=== PATIENT | female | born 1945 | race Caucasian/White ===

== ENCOUNTER 2018-03-15 14:46 | Inpatient (IN) | payer MEDICARE, MEDICAID ==
[2018-03-15] MEDS ORDERED: Morphine VIAL* 10 MG/ML 1 ML VIAL IV ONE (15:22)
[2018-03-15] MEDS ORDERED: Ondansetron INJ* 2 MG/ML VIAL IV ONE (15:22)
[2018-03-15] MEDS ORDERED: cefTRIAXone(*) 1 GM in NS 0.9% 50 ML* 50 ML IVPB ONE (15:24)
--- NOTE | 2018-03-15 15:28 | ED ---
HPI Chest Pain - HPI Summary HPI Summary: This pt is a 73 y/o female [facility] c/o right sided chest pain and RUQ abd pain since 3 days ago. Additionally she notes some SOB. Pt reports her pain is aggravated with deep breaths. Denies fever, chills, nausea, vomiting. She states her whole abdomen is always tender. PMHx includes cholecystectomy. She reports she was told she had COPD but her current PCP told her she didn't have it. Pt does not use oxygen at home. - History of Current Complaint Chief Complaint: EDChestWallPain Time Seen by Provider: 03/15/18 14:59 Hx Obtained From: Patient Onset/Duration: Started Days Ago, Still Present Timing: Lasting Days Current Severity: Severe Pain Intensity: 10 Pain Scale Used: 0-10 Numeric Chest Pain Location: Right Lateral Chest Pain Radiates: No Aggravating Factor(s): Deep Breaths Alleviating Factor(s): Nothing Associated Signs and Symptoms: Positive: Chest Pain, Shortness of Breath, Abdominal Pain - RUQ. Negative: Fever, Chills, Nausea, Vomiting - Allergy/Home Medications Allergies/Adverse Reactions: Allergies Allergy/AdvReac Type Severity Reaction Status Date / Time codeine AdvReac Abdominal Verified 03/16/18 21:38 Pain Home Medications: Home Medications Albuterol HFA INHALER* [Ventolin HFA Inhaler*] 1 puff INH Q6H PRN 03/15/18 [ History Confirmed 03/15/18] Fluticasone NASAL SPRAY 50MCG* [Flonase NASAL SPRAY 50MCG*] 2 spray BOTH NARES DAILY 03/15/18 [History Confirmed 03/15/18] Montelukast Sodium TAB* [Singulair TAB*] 10 mg PO QPM 03/15/18 [History Confirmed 03/15/18] PMH/Surg Hx/FS Hx/Imm Hx Endocrine/Hematology History: Denies: Hx Diabetes Cardiovascular History: Denies: Hx Hypertension GI History: Reports: Hx Gastroesophageal Reflux Disease, Hx Irritable Bowel Musculoskeletal History: Reports: Hx Arthritis - osteoarthritis, Hx Osteoporosis EENT History: Reports: Other - sinusitis Psychiatric History: Reports: Hx Depression - Surgical History Surgery Procedure, Year, and Place: hysterectomy. cholecystectomy Infectious Disease History: No Infectious Disease History: Denies: Traveled Outside the [place] in Last 30 Days - Family History Known Family History: Positive: Cardiac Disease - Mother Family History: Leukemia. Ovarian CA - Social History Alcohol Use: None Substance Use Type: Reports: None Smoking Status (MU): Never Smoked Tobacco Review of Systems Negative: Fever, Chills Positive: Chest Pain Positive: Shortness Of Breath Positive: Abdominal Pain. Negative: Vomiting, Nausea All Other Systems Reviewed And Are Negative: Yes Physical Exam - Summary Physical Exam Summary: VITAL SIGNS: Reviewed. GENERAL: Patient is a well-developed and nourished female who is lying comfortable in the stretcher. Patient with some shortness of breath. HEAD AND FACE: No signs of trauma. No ecchymosis, hematomas or skull depressions. No sinus tenderness. EYES: PERRLA, EOMI x 2, No injected conjunctiva, no nystagmus. EARS: Hearing grossly intact. Ear canals and tympanic membranes are within normal limits. MOUTH: Oropharynx within normal limits. NECK: Supple, trachea is midline, no adenopathy, no JVD, no carotid bruit, no c- spine tenderness, neck with full ROM. CHEST: Symmetric, right sided chest tenderness especially on palpation LUNGS: Clear to auscultation bilaterally. No wheezing or crackles. CVS: Regular rate and rhythm, S1 and S2 present, no murmurs or gallops appreciated. ABDOMEN: Soft, right upper quadrant abd tenderness on palpation. No signs of distention. No rebound, no guarding, and no masses palpated. Bowel sounds are normal. EXTREMITIES: FROM in all major joints, no edema, no cyanosis or clubbing. NEURO: Alert and oriented x 3. No acute neurological deficits. Speech is normal and follows commands. SKIN: Dry and warm Triage Information Reviewed: Yes Vital Signs On Initial Exam: Initial Vitals Temp Pulse Resp BP Pulse Ox 99 F 85 20 129/73 94 03/15/18 14:53 03/15/18 14:53 03/15/18 14:53 03/15/18 14:53 03/15/18 14:53 Vital Signs Reviewed: Yes Diagnostics - Vital Signs Vital Signs Temp Pulse Resp BP Pulse Ox 03/15/18 15:00 86 17 95 03/15/18 14:55 84 19 129/73 93 03/15/18 14:54 87 94 03/15/18 14:53 99 F 85 20 129/73 94 - Laboratory Result Diagrams: 03/15/18 15:39 03/16/18 05:30 Lab Statement: Any lab studies that have been ordered have been reviewed, and results considered in the medical decision making process. - Radiology Chest XR Xray Interpretation: Positive (See Comments) - IMPRESSION: The constellation of findings is most consistent with pulmonary vascular congestion and interstitial edema with associated RIGHT larger than LEFT small dependent pleural effusions and basilar atelectasis. Dr. Garza has reviewed this report. Radiology Interpretation Completed By: Radiologist - CT CTA Chest CT Interpretation: Positive (See Comments) - IMPRESSION: 1. Bilateral pulmonary emboli without right heart strain. 2. Bilateral lower lobe pneumonia/ atelectasis. Dr. Garza has reviewed this report. CT Interpretation Completed By: Radiologist - EKG 15:05 Cardiac Rate: NL - 86 bpm EKG Rhythm: Sinus Rhythm EKG Interpretation: No ST elevations. Chest Pain Course/Dx - Course Assessment/Plan: This pt is a 73 y/o female presenting to [facility] c/o right sided chest pain and RUQ abd pain since 3 days ago. Additionally she notes some SOB. Pt reports her pain is aggravated with deep breaths. Denies fever, chills, nausea, vomiting. She states her whole abdomen is always tender. PMHx includes cholecystectomy. She reports she was told she had COPD but her current PCP told her she didn't have it. Blood work without any significant abnormality except for WBCs 11.1, INR is 1.07, potassium 3.4, carbon dioxide is 20, glucose 111, total bili is 1.8, AST 48, alkaline phosphatase is 122, D-dimer of 1050, C- reactive protein is 82.6. Two troponins 4 hours apart are 0.01. Chest x-ray impression: Constellation findings is most consistent with pulmonary vascular congestion and interstitial edema with associated right larger than left a small dependent pleural effusion and bibasilar atelectasis. Chest CT impression : Bilateral pulmonary emboli without right heart strain. Bilateral lower lobe pneumonia. In the ED course the patient was given Rocephin for the pneumonia, IV fluids, and Eliquis for the pulmonary embolus. At this point I discussed my physical exam, findings and test results with Dr. Gentile from the hospitalist services who accepted the patient for admission. Patient is hemodynamically stable alert and oriented 3. - Chest Pain Differential Diagnosis/HQI/PQRI: Acute MN, CHF, Pulmonary Edema, Pulmonary Embolism, Other: - Pneumonia - Diagnoses Provider Diagnoses: Pulmonary embolism, bilateral - Provider Notifications Discussed Care Of Patient With: Bo Gentile - Hospitalist Time Discussed With Above Provider: 19:10 Instructed by Provider To: Admit As Inpatient - Critical Care Time Critical Care Time: 75-104 min Discharge - Sign-Out/Discharge Documenting (check all that apply): Patient Departure - Admit to [facility] - Discharge Plan Condition: Stable Disposition: ADMITTED TO [facility] - Billing Disposition and Condition Condition: STABLE Disposition: Admitted to [facility] - Attestation Statements Document Initiated by Scribe: Yes Documenting Scribe: Linda Sunshine Provider For Whom Rea is Documenting (Include Credential): Sukumar Garza MD Scribe Attestation: Linda Cavanaugh, scribed for Sukumar Garza MD on 03/17/18 at 0751. Scribe Documentation Reviewed: Yes Provider Attestation: The documentation as recorded by the Linda dunne accurately reflects the service I personally performed and the decisions made by , Sukumar Garza MD
[2018-03-15] MEDS ORDERED: Morphine INJ* 4 MG/ML 1 ML SYRINGE (NEW SYRINGE VERSION) ONE (15:32)
--- NOTE | 2018-03-15 15:39 | RAD ---
Indication: Chest pain, shortness of breath, RIGHT rib pain. Comparison: April 18, [address] Technique: Upright AP 1515 hours Report: Prominent ill-defined central pulmonary vasculature. RIGHT larger than LEFT small dependent pleural effusions with proportional basilar atelectasis. Negative for pneumothorax. Mild prominence of the interstitial markings. Cardiomegaly. IMPRESSION: #. The constellation of findings is most consistent with pulmonary vascular congestion and interstitial edema with associated RIGHT larger than LEFT small dependent pleural effusions and basilar atelectasis.
[2018-03-15 15:55] LABS: ABS Basophils 0.1 10^3/ul (0-0.2); ABS Eosinophils 0.1 10^3/ul (0-0.6); ABS Lymphocytes 1.5 10^3/ul (1.0-4.8); ABS Monocytes 0.9 10^3/ul (0-0.8); ABS Neutrophils 8.6 10^3/ul (1.5-7.7); ABS Nucleated RBC 0 10^3/ul; Eosinophil % 0.5 % (0-6); Hematocrit 42 % (35-47); Hemoglobin 14.2 g/dl (12.0-16.0); Lymphocyte % 13.8 % (25-47); Mean Corpuscular HGB Conc 34 g/dl (31-36); Mean Corpuscular Hemoglobin 29 pg (27-31); Mean Corpuscular Volume 85 fL (80-97); Mean Platelet Volume 8.7 um3 (7.4-10.4); Nucleated Red Blood Cells % 0.1; Platelet Count 184 10^3/ul (150-450); Red Blood Count 4.96 10^6/ul (4.00-5.40); Red Cell Distribution Width 14 % (10.5-15); White Blood Count 11.1 10^3/ul (3.5-10.8)
[2018-03-15 16:03] LABS: INR 1.07 (0.77-1.02)
[2018-03-15 16:21] LABS: EGFR Non-African American 90.7 (>60)
[2018-03-15] MEDS ORDERED: Ketorolac INJ* 30 MG/ML 1 ML VIAL IV PUSH ONE (16:53)
[2018-03-15] MEDS ORDERED: Potassium Chlor TAB* 20 MEQ TAB.ER PO ONE ×2 (17:22→19:21)
[2018-03-15] MEDS ORDERED: Iohexol 350* (CONTRAST) 500 ML MDV IV ONE (17:58)
--- NOTE | 2018-03-15 19:01 | RAD ---
EXAM: CT Angiography Chest With Intravenous Contrast CLINICAL HISTORY: 73 years old, female; Signs and symptoms; Shortness of breath; Additional info: Hypoxia TECHNIQUE: Axial computed tomographic angiography images of the chest with intravenous contrast using pulmonary embolism protocol. All CT scans at this facility use at least one of these dose optimization techniques: automated exposure control; mA and/or kV adjustment per patient size (includes targeted exams where dose is matched to clinical indication); or iterative reconstruction. MIP reconstructed images were created and reviewed. Coronal and sagittal reformatted images were created and reviewed. CONTRAST: 72 mL of OMNIPAQUE 350 administered intravenously. COMPARISON: No relevant prior studies available. FINDINGS: Pulmonary arteries: Acute pulmonary emboli are present in the segmental arteries diffusely and bilaterally. Aorta: Atherosclerotic calcification. Lungs: Bilateral lower lobe pneumonia/atelectasis. No mass. Pleural space: Right pleural effusion. No pneumothorax. Heart: No CT evidence of right heart strain. No significant pericardial effusion. Bones/joints: No acute fracture. No dislocation. Soft tissues: Unremarkable. Lymph nodes: Unremarkable. No enlarged lymph nodes. Kidneys and ureters: Probable left upper pole renal cyst measuring approximately 15 mm. Incompletely evaluated on this examination. Consider evaluation with ultrasound or dedicated renal MR if not already done so. IMPRESSION: 1. Bilateral pulmonary emboli without right heart strain. 2. Bilateral lower lobe pneumonia/atelectasis.
[2018-03-15] MEDS ORDERED: Apixaban* 5 MG TAB PO ONE (19:07)
[2018-03-15] MEDS ORDERED: traMADol TAB* 50 MG PO PRN (19:20)
[2018-03-15] MEDS ORDERED: Ondansetron ODT TAB* 4 MG PO PRN (19:20)
[2018-03-15] MEDS ORDERED: Melatonin 3 MG TAB PO PRN (19:20)
[2018-03-15] MEDS ORDERED: oxyCODONE TAB* 5 MG TAB PO PRN (19:20)
[2018-03-15] MEDS ORDERED: Albuterol HFA INHALER* 8 gm MDI INH PRN (19:22)
[2018-03-15] MEDS ORDERED: NS 0.9% 1000 ML* 1,000 ML IV SCH (19:30)
--- NOTE | 2018-03-15 20:35 | HP ---
H&P (Free Text) History and Physical: PCP: Dr George at [facility] Date/Time: 03/15/2018 191 CC: R chest pain HPI: Mrs Moore is a 73YO female HX asthma who presents reporting onset last Thursday of sharp R chest pain that resolved on its own, but returned today around 0400 associated with SOB and nausea, but no palpitations or light- headedness. She denies F/C, sweats, LE edema or pain, and specific alleviating factors. Pain is increased with laugh, cough, movement, and deep inspiration. It does radiate to the R shoulder area, but not the neck. She denies HX of similar PMedHx asthma Ambulatory Orders Albuterol HFA INHALER* [Ventolin HFA Inhaler*] 1 puff INH Q6H PRN 03/15/18 Fluticasone NASAL SPRAY 50MCG* [Flonase NASAL SPRAY 50MCG*] 2 spray BOTH NARES DAILY 03/15/18 Montelukast Sodium TAB* [Singulair TAB*] 10 mg PO QPM 03/15/18 Allergies No Known Allergies Allergy (Verified 08/23/14 17:38) PSurgHx B carpal tunnel release hysterectomy cholecystectomy [facility] cataract extractions SocHx: no tobacco, alcohol, or recreational drugs; , lives alone with her cats; HX several miscellaneous jobs; full code status, son Narayan Hidalgo is her HCP FamHx: Mother passed at 89 2nd CVA w/ HX CAD/CABG, & CHF. Father was estranged. ROS: as above, otherwise reviewed and all were negative vitals: Vital Signs Temp 37.2 C 03/15/18 14:53 Pulse 90 03/15/18 19:26 Resp 16 03/15/18 19:26 BP 118/78 03/15/18 19:26 Pulse Ox 94 03/15/18 19:26 Intake & Output 03/14/18 03/15/18 03/15/18 23:59 11:59 23:59 Weight 81.647 kg Constitutional: NAD, normally developed, obese elderly white female HEENM: atraumatic; sclera/conjunctiva: anicteric/clear; hearing: clinically intact; oropharynx: clear, mucosa moist Neck: soft tissue: non-tender; thyroid: normal Pulmonary: coarse crackles and mildly diminished bilaterally, fair to good aeration, no accessory muscle use CV: RR/RR, normal S1S2, no carotid bruit, no jugular venous distention, 2+ B DP/ PT, no edema Abdominal: soft, non-distended, non-tender, no rebound/guarding/rigidity, normoactive bowel sounds, no hepatosplenomegaly or masses, no costovertebral angle tenderness Musculoskeletal: general: grossly intact, positive Yaya's LLE Integumental: normal appearance and texture of exposed skin Psychiatric orientation: AA&O to PPS affect: calm mood: cooperative/pleasant eye contact: good content: reliable responses: minimalized insight: fair Testing: Lab Results 03/15/18 03/15/18 03/15/18 Range/Units 15:39 15:39 15:39 WBC 11.1 H (3.5-10.8) 10^3/ul RBC 4.96 (4.00-5.40) 10^6/ul Hgb 14.2 (12.0-16.0) g/dl Hct 42 (35-47) % MCV 85 (80-97) fL MCH 29 (27-31) pg MCHC 34 (31-36) g/dl RDW 14 (10.5-15) % Plt Count 184 (150-450) 10^3/ul MPV 8.7 (7.4-10.4) um3 Neut % (Auto) 77.2 (38-83) % Lymph % (Auto) 13.8 L (25-47) % [place] % (Auto) 8.0 H (0-7) % Eos % (Auto) 0.5 (0-6) % Baso % (Auto) 0.5 (0-2) % Absolute Neuts (auto) 8.6 H (1.5-7.7) 10^3/ul Absolute Lymphs (auto) 1.5 (1.0-4.8) 10^3/ul Absolute Monos (auto) 0.9 H (0-0.8) 10^3/ul Absolute Eos (auto) 0.1 (0-0.6) 10^3/ul Absolute Basos (auto) 0.1 (0-0.2) 10^3/ul Absolute Nucleated RBC 0 10^3/ul Nucleated RBC % 0.1 INR (Anticoag Therapy) 1.07 H (0.77-1.02) APTT 28.3 (26.0-36.3) seconds D-Dimer, Quantitative > 1050 H (Less Than 230) ng/mL Sodium 137 (135-145) mmol/L Potassium 3.4 L (3.5-5.0) mmol/L Chloride 106 (101-111) mmol/L Carbon Dioxide 20 L (22-32) mmol/L Anion Gap 11 (2-11) mmol/L BUN 8 (6-24) mg/dL Creatinine 0.64 (0.51-0.95) mg/dL Est GFR ( Amer) 109.8 (>60) Est GFR (Non-Af Amer) 90.7 (>60) BUN/Creatinine Ratio 12.5 (8-20) Glucose 111 H (70-100) mg/dL Lactic Acid (0.5-2.0) mmol/L Calcium 9.0 (8.6-10.3) mg/dL Magnesium 2.2 (1.9-2.7) mg/dL Total Bilirubin 1.80 H (0.2-1.0) mg/dL AST 48 H (13-39) U/L ALT 47 (7-52) U/L Alkaline Phosphatase 122 H (34-104) U/L Total Creatine Kinase 58 (10-223) U/L CK-MB (CK-2) 1.8 (0.6-6.3) ng/mL Troponin I 0.01 (<0.04) ng/mL C-Reactive Protein 82.67 H (<8.01) mg/L B-Natriuretic Peptide ( - 100) pg/mL Total Protein 7.2 (6.4-8.9) g/dL Albumin 4.1 (3.2-5.2) g/dL Globulin 3.1 (2-4) g/dL Albumin/Globulin Ratio 1.3 (1-3) TSH 1.50 (0.34-5.60) mcIU/mL 03/15/18 03/15/18 03/15/18 Range/Units 15:39 15:39 17:56 WBC (3.5-10.8) 10^3/ul RBC (4.00-5.40) 10^6/ul Hgb (12.0-16.0) g/dl Hct (35-47) % MCV (80-97) fL MCH (27-31) pg MCHC (31-36) g/dl RDW (10.5-15) % Plt Count (150-450) 10^3/ul MPV (7.4-10.4) um3 Neut % (Auto) (38-83) % Lymph % (Auto) (25-47) % [place] % (Auto) (0-7) % Eos % (Auto) (0-6) % Baso % (Auto) (0-2) % Absolute Neuts (auto) (1.5-7.7) 10^3/ul Absolute Lymphs (auto) (1.0-4.8) 10^3/ul Absolute Monos (auto) (0-0.8) 10^3/ul Absolute Eos (auto) (0-0.6) 10^3/ul Absolute Basos (auto) (0-0.2) 10^3/ul Absolute Nucleated RBC 10^3/ul Nucleated RBC % INR (Anticoag Therapy) (0.77-1.02) APTT (26.0-36.3) seconds D-Dimer, Quantitative (Less Than 230) ng/mL Sodium (135-145) mmol/L Potassium (3.5-5.0) mmol/L Chloride (101-111) mmol/L Carbon Dioxide (22-32) mmol/L Anion Gap (2-11) mmol/L BUN (6-24) mg/dL Creatinine (0.51-0.95) mg/dL Est GFR ( Amer) (>60) Est GFR (Non-Af Amer) (>60) BUN/Creatinine Ratio (8-20) Glucose (70-100) mg/dL Lactic Acid 1.6 (0.5-2.0) mmol/L Calcium (8.6-10.3) mg/dL Magnesium (1.9-2.7) mg/dL Total Bilirubin (0.2-1.0) mg/dL AST (13-39) U/L ALT (7-52) U/L Alkaline Phosphatase (34-104) U/L Total Creatine Kinase (10-223) U/L CK-MB (CK-2) (0.6-6.3) ng/mL Troponin I 0.01 (<0.04) ng/mL C-Reactive Protein (<8.01) mg/L B-Natriuretic Peptide 29 ( - 100) pg/mL Total Protein (6.4-8.9) g/dL Albumin (3.2-5.2) g/dL Globulin (2-4) g/dL Albumin/Globulin Ratio (1-3) TSH (0.34-5.60) mcIU/mL ECG, personally reviewed: NSR rate 86, Q-waves III/AVF, no ischemia CXR, personally reviewed: IMPRESSION: The constellation of findings is most consistent with pulmonary vascular congestion and interstitial edema with associated RIGHT larger than LEFT small dependent pleural effusions and basilar atelectasis. CTA chest, personally reviewed: IMPRESSION: 1. Bilateral pulmonary emboli without right heart strain. 2. Bilateral lower lobe pneumonia/atelectasis. Impression: 73F HX asthma presents with B pulmonary emboli DIAGNOSIS & PLAN Primary B pulmonary emboli : apixaban 10mg PO BID x7 days followed by 5mg BID : US BLE to evaluate for residual clot burden/risk : telemetry : supplemental oxygen : pain control : PT evaluation in AM : supportive care B lower lobe atelectasis favored over pneumonia given no infectious symptoms : incentive spirometry Secondary asthma : continue albuterol & montelukast Admission Rational: Inpatient as without the above interventions the risk of impending adverse outcome is unacceptably high; inappropriate for the outpatient setting DVTp: apixaban Code Status: full HCP: Narayan banuelos Critical Care time: 45minutes with >50% spent at the bedside obtaining a history , performing the examination, advising of diagnosis & treatment options along with risks/benefits/reasoning; remainder spent discussing with ER MD, reviewing labs and radiology exams, performing documentation
[2018-03-15] MEDS: Docusate CAP* 100 MG PO SCH (21:43)
--- NOTE | 2018-03-16 00:04 | RAD ---
EXAM: US Duplex Bilateral Lower Extremity Veins CLINICAL HISTORY: 73 years old, female; Condition or disease; Other: Pulmonary embolism; Additional info: B pe, assess for residual clot burden TECHNIQUE: Real-time duplex ultrasound scan of the bilateral lower extremity veins integrating B-mode two-dimensional vascular structure, Doppler spectral analysis, color flow Doppler imaging and compression. COMPARISON: No relevant prior studies available. FINDINGS: Right deep veins: Unremarkable. No DVT in the right common femoral, femoral, proximal deep femoral or popliteal veins. The veins demonstrate normal color flow, are normally compressible, with normal phasic flow and/or augmentation response. Right superficial veins: Unremarkable. No thrombus in the visualized right great saphenous vein. Left deep veins: No DVT in the left common femoral, femoral, proximal deep femoral or popliteal veins. These veins demonstrate normal color flow, are normally compressible, with normal phasic flow and/or augmentation response. Nonocclusive thrombus is present in the left posterior tibial vein. Left superficial veins: Unremarkable. No thrombus in the visualized left great saphenous vein. Soft tissues: No acute findings. No popliteal cyst. IMPRESSION: 1. The study is positive for nonocclusive thrombus in LEFT posterior tibial vein. No thrombus identified above the left knee. 2. No DVT in RIGHT lower extremity.
[2018-03-16] MEDS: Omeprazole CAP* 20 MG PO SCH (05:41)
[2018-03-16] MEDS: Apixaban* 5 MG TAB PO SCH ×2 (09:20→21:49)
[2018-03-16] MEDS: Docusate CAP* 100 MG PO SCH ×2 (09:20→21:53)
[2018-03-16] MEDS: Fluticasone NASAL SPRAY 50MCG* 16 gm SPRAY BTL BOTH NARES SCH (09:22)
--- NOTE | 2018-03-16 11:46 | ECHO ---
Patient: CASSIDY BUTT [facility] Rec#: [id number] : 1945 Date: 03/16/2018 Age: 73y Height: 157 cm / 61.8 in Weight: 81.6 kg / 179.8 lbs Sex: F BSA: 1.8 Room#: 438 Admit Date#: 03/15/2018 Type: Inpatient Referring: Bo Gentile MD Reading: Rudy Dela Cruz MD Rn Oncology: Kaylin Garcia RN RDCS Transthoracic Echocardiogram Indication: Pulmonary Embolism BP: 101/57 HR: 80 Rhythm: NSR Findings History: Asthma Technical Comments: The study quality is fair. The study is technically limited due to patient body habitus. Left Ventricle: The left ventricular chamber size is normal. Mild concentric left ventricular hypertrophy is observed. Global left ventricular wall motion and contractility are within normal limits. There is normal left ventricular systolic function. The estimated ejection fraction is 60-65%. There is no consistent Doppler evidence of clinically significant diastolic dysfunction. Left Atrium: The left atrial chamber size is normal. Right Ventricle: Moderator Band present. The right ventricle is mildly dilated. The right ventricle wall thickness is mildly increased. The right ventricular global systolic function is mildly reduced. Right Atrium: The right atrial cavity size is normal. Aortic Valve: The aortic valve is trileaflet. The aortic valve leaflets are mildly thickened. There is no evidence of aortic regurgitation. There is no evidence of aortic stenosis. Mitral Valve: The mitral valve leaflets are mildly thickened. There is a trace of mitral regurgitation. There is no evidence of mitral stenosis. Tricuspid Valve: The tricuspid valve leaflets are normal. There is mild to moderate tricuspid regurgitation. There is evidence of moderate pulmonary hypertension. There is no tricuspid stenosis. Pulmonic Valve: The pulmonic valve appears normal. There is a trace pulmonic regurgitation. There is no pulmonic stenosis. Pericardium: There is no significant pericardial effusion. A pericardial fat pad is visualized. Aorta: There is no dilatation of the ascending aorta. There is no dilatation of the aortic arch. There is mild dilatation of the aortic root. Pulmonary Artery: The main pulmonary artery is not well visualized. Venous: The inferior vena cava appears normal in size. There is a greater than 50% respiratory change in the inferior vena cava dimension. Summary: There was not any prior study for comparison. Conclusions Global left ventricular wall motion and contractility are within normal limits. There is normal left ventricular systolic function. The estimated ejection fraction is 60-65%. The right ventricular global systolic function is mildly reduced. There is no evidence of aortic stenosis. There is a trace of mitral regurgitation. There is mild to moderate tricuspid regurgitation. There is evidence of moderate pulmonary hypertension. There is no significant pericardial effusion. Measurements Name Value Normal Range RVIDd (AP) 2D 3.4 cm (0.9 - 2.6) RVDdMajor (2D) 3.7 cm (2.2 - 4.4) RVAW (2D) 0.8 cm (0.2 - 0.5) RAd ISD 4CH 4.7 cm (3.4 - 4.9) RA (A4C)W 3.3 cm (2.9 - 4.6) IVSd (2D) 1.2 cm (0.6 - 1) LVPWd (2D) 1.2 cm (0.6 - 1) LVIDd (2D) 3.8 cm (3.6 - 5.4) LVIDs (2D) 2.4 cm - LV FS (2D) 37 % (25 - 45) Aortic Annulus 2.1 cm (1.4 - 2.6) Ao root diameter (2D) 3.6 cm (2.1 - 3.5) Ascending Ao 3.2 cm (2.1 - 3.4) Aortic arch 2.3 cm (1.8 - 3.4) LA dimension (AP) 2D 3 cm (2.3 - 3.8) LAd ISD 4CH 4.6 cm (2.9 - 5.3) LA ISD 4CH W 3.5 cm (2.5 - 4.5) Name Value Normal Range MV E-wave Vmax 0.64 m/sec - MV deceleration time 282 msec - MV A-wave Vmax 0.78 m/sec - MV E:A ratio 0.8 ratio - LV septal e' Vmax 0.07 m/sec - LV lateral e' Vmax 0.07 m/sec - LV E:e' septal ratio 9.1 ratio - LV E:e' lateral ratio 9.1 ratio - Name Value Normal Range AV Vmax 1.3 m/sec - AV VTI 23.4 cm - AV peak gradient 7 mmHg - AV mean gradient 4 mmHg - LVOT Vmax 0.83 m/sec - LVOT VTI 17.3 cm - LVOT peak gradient 3 mmHg - LVOT mean gradient 2 mmHg - SHARLENE Vmax 0.62 m/sec - Name Value Normal Range TR Vmax 3.3 m/sec - TR peak gradient 44 mmHg - RAP 3 mmHg - RVSP 47 mmHg - IVC diameter 1.8 cm - Name Value Normal Range PV Vmax 0.87 m/sec -
--- NOTE | 2018-03-16 12:06 | PN ---
Subjective Date of Service: 03/16/18 Interval History: Ms. Moore continues to have chest pain on inspiration this morning. She feels slightly SOB, but reports this has improved since arriving to the hospital. She denies dizziness, N/V, diaphoresis. She was not aware of the diagnosis of PE. She does admit to living a mostly sedentary life. Family History: Unchanged from Admission Social History: Unchanged from Admission Past Medical History: Unchanged from Admission Objective Active Medications: Acetaminophen (Tylenol Tab*) 650 mg PO Q6H PRN Albuterol (Ventolin Hfa Inhaler*) 1 puff INH Q6H PRN Apixaban (Eliquis*) 10 mg PO BID LITO Docusate Sodium (Colace Cap*) 200 mg PO BID LITO Fluticasone Propionate (Flonase Nasal [place] 50mcg*) 2 spray BOTH NARES DAILY LITO Melatonin (Melatonin) 3 mg PO BEDTIME PRN; Protocol Montelukast Sodium (Singulair Tab*) 10 mg PO QPM LITO Omeprazole (Prilosec Cap*) 20 mg PO DAILY@0600 LITO Ondansetron HCl (Zofran Odt Tab*) 4 mg PO Q6H PRN Oxycodone HCl (Roxycodone Tab*) 2.5 mg PO Q4H PRN Tramadol HCl (Ultram*) 50 mg PO Q6H PRN Vital Signs - 8 hr 03/16/18 03/16/18 08:00 11:32 Temperature 98.3 F Pulse Rate 87 Respiratory 18 20 Rate Blood Pressure 134/76 (mmHg) O2 Sat by Pulse 96 Oximetry Oxygen Devices in Use Now: Nasal Cannula - 4L NC Appearance: Elderly woman sitting in chair in no acute distress. Eyes: No Scleral Icterus, PERRLA Ears/Nose/Mouth/Throat: NL Teeth, Lips, Gums, Mucous Membranes Moist Neck: NL Appearance and Movements; NL JVP, Trachea Midline Respiratory: Symmetrical Chest Expansion and Respiratory Effort, Clear to Auscultation Cardiovascular: NL Sounds; No Murmurs; No JVD, RRR, No Edema Abdominal: NL Sounds; No Tenderness; No Distention, No Hepatosplenomegaly Extremities: No Edema Skin: No Rash or Ulcers Neurological: Alert and Oriented x 3 Lines/Tubes/Other Access: Clean, Dry and Intact Peripheral IV Nutrition: Taking PO's Result Diagrams: 03/15/18 15:39 03/16/18 05:30 Assess/Plan/Problems-Billing Assessment: Ms. Moore is a 73yo female with PMH of asthma who presents with chest pain x4 days and SOB for the last few months and was found to have bilateral pulmonary emboli. - Patient Problems (1) Bilateral pulmonary embolism Current Visit: Yes Status: Acute Priority: High Code(s): I26.99 - OTHER PULMONARY EMBOLISM WITHOUT ACUTE COR PULMONALE SNOMED Code(s): 61988920 Comment: - Chest CTA on 03/15 shows bilateral PE without right heart strain - Echo shows EF of 60-65%, normal LV systolic function, mildly reduced RV systolic function - Currently requiring 4L oxygen - Telemetry - Continue Eliquis (2) Chest pain Current Visit: Yes Status: Acute Priority: High Code(s): R07.9 - CHEST PAIN, UNSPECIFIED SNOMED Code(s): 01073488 Comment: - Negative trops x3 - 2/2 PE - Continue oxy and tramadol (3) Atelectasis Current Visit: Yes Status: Acute Priority: High Comment: - Atelectasis vs pneumonia noted on CTA - No evidence of infection - Continue incentive spirometry (4) Asthma Current Visit: Yes Status: Chronic Priority: Medium Code(s): J45.909 - UNSPECIFIED ASTHMA, UNCOMPLICATED SNOMED Code(s): 689275016 Comment: - Continue albuterol and singulair (5) Full code status Current Visit: Yes Status: Acute Priority: High Code(s): Z78.9 - OTHER SPECIFIED HEALTH STATUS SNOMED Code(s): 079651032 (6) DVT prophylaxis Current Visit: Yes Status: Acute Priority: High Code(s): JGP9094 - SNOMED Code(s): 421946193 Comment: - Eliquis Status and Disposition: Inpatient for acute management. Anticipate discharge home when medically stable.
[2018-03-16] MEDS: Montelukast Sodium TAB* 10 MG PO SCH (17:18)
[2018-03-16] MEDS: Acetaminophen TAB* 325 MG PO PRN (21:50)
[2018-03-17] MEDS: Omeprazole CAP* 20 MG PO SCH (05:37)
[2018-03-17] MEDS: Fluticasone NASAL SPRAY 50MCG* 16 gm SPRAY BTL BOTH NARES SCH (10:15)
[2018-03-17] MEDS: Acetaminophen TAB* 325 MG PO PRN (10:16)
[2018-03-17] MEDS: Apixaban* 5 MG TAB PO SCH ×2 (10:17→20:23)
[2018-03-17] MEDS: Docusate CAP* 100 MG PO SCH ×2 (10:20→20:23)
[2018-03-17 11:12] LABS: ABS Basophils 0 10^3/ul (0-0.2); ABS Eosinophils 0.1 10^3/ul (0-0.6); ABS Lymphocytes 1.4 10^3/ul (1.0-4.8); ABS Monocytes 0.8 10^3/ul (0-0.8); ABS Nucleated RBC 0 10^3/ul; Eosinophil % 1.3 % (0-6); Hematocrit 38 % (35-47); Hemoglobin 12.9 g/dl (12.0-16.0); Lymphocyte % 16.9 % (25-47); Mean Corpuscular HGB Conc 34 g/dl (31-36); Mean Corpuscular Hemoglobin 29 pg (27-31); Mean Corpuscular Volume 86 fL (80-97); Mean Platelet Volume 8.3 um3 (7.4-10.4); Nucleated Red Blood Cells % 0; Platelet Count 205 10^3/ul (150-450); Red Blood Count 4.43 10^6/ul (4.00-5.40); Red Cell Distribution Width 13 % (10.5-15); White Blood Count 8.3 10^3/ul (3.5-10.8)
[2018-03-17 11:28] LABS: EGFR Non-African American 90.7 (>60)
--- NOTE | 2018-03-17 12:05 | PN ---
Subjective Date of Service: 03/17/18 Interval History: Ms. Moore reports feeling "okay" this morning. She did have a BM today. Continues to c/o SOB and pain with deep inspiration. Still requiring supplemental oxygen. Family History: Unchanged from Admission Social History: Unchanged from Admission Past Medical History: Unchanged from Admission Objective Active Medications: Acetaminophen (Tylenol Tab*) 650 mg PO Q6H PRN Albuterol (Ventolin Hfa Inhaler*) 1 puff INH Q6H PRN Apixaban (Eliquis*) 10 mg PO BID LITO Docusate Sodium (Colace Cap*) 200 mg PO BID LITO Fluticasone Propionate (Flonase Nasal [place] 50mcg*) 2 spray BOTH NARES DAILY LITO Melatonin (Melatonin) 3 mg PO BEDTIME PRN; Protocol Montelukast Sodium (Singulair Tab*) 10 mg PO QPM LITO Omeprazole (Prilosec Cap*) 20 mg PO DAILY@0600 LITO Ondansetron HCl (Zofran Odt Tab*) 4 mg PO Q6H PRN Oxycodone HCl (Roxycodone Tab*) 2.5 mg PO Q4H PRN Tramadol HCl (Ultram*) 50 mg PO Q6H PRN Vital Signs - 8 hr 03/17/18 03/17/18 03/17/18 07:43 07:57 11:03 Temperature 98.0 F 97.7 F Pulse Rate 73 84 Respiratory 16 16 18 Rate Blood Pressure 120/64 122/67 (mmHg) O2 Sat by Pulse 94 93 Oximetry Oxygen Devices in Use Now: Nasal Cannula - 4L NC Appearance: Elderly female sitting in bed in no acute distress. Eyes: No Scleral Icterus, PERRLA Ears/Nose/Mouth/Throat: NL Teeth, Lips, Gums, Mucous Membranes Moist Neck: NL Appearance and Movements; NL JVP, Trachea Midline Respiratory: Symmetrical Chest Expansion and Respiratory Effort, - - Coarse crackles to LLL, otherwise clear throughout Cardiovascular: NL Sounds; No Murmurs; No JVD, RRR Abdominal: No Hepatosplenomegaly, - - Nondistended, mild tenderness to palpation Extremities: No Clubbing, Cyanosis, - - Mild non-pitting edema to BLE Skin: No Rash or Ulcers Neurological: Alert and Oriented x 3 Lines/Tubes/Other Access: Clean, Dry and Intact Peripheral IV Nutrition: Taking PO's Result Diagrams: 03/17/18 11:00 03/17/18 11:00 Assess/Plan/Problems-Billing Assessment: Ms. Moore is a 73yo female with PMH of asthma who presents with chest pain x4 days and SOB for the last few months and was found to have bilateral pulmonary emboli. - Patient Problems (1) Bilateral pulmonary embolism Current Visit: Yes Status: Acute Priority: High Code(s): I26.99 - OTHER PULMONARY EMBOLISM WITHOUT ACUTE COR PULMONALE SNOMED Code(s): 76789528 Comment: - Chest CTA on 03/15 shows bilateral PE without right heart strain - Echo shows EF of 60-65%, normal LV systolic function, mildly reduced RV systolic function - Still requiring 4L oxygen; titrate - Telemetry - Continue Eliquis (2) Chest pain Current Visit: Yes Status: Acute Priority: High Code(s): R07.9 - CHEST PAIN, UNSPECIFIED SNOMED Code(s): 44605475 Comment: - Negative trops x3 - 2/2 PE - Continue oxy and tramadol (3) Atelectasis Current Visit: Yes Status: Acute Priority: High Comment: - Atelectasis vs pneumonia noted on CTA - No evidence of infection - Continue incentive spirometry (4) Asthma Current Visit: Yes Status: Chronic Priority: Medium Code(s): J45.909 - UNSPECIFIED ASTHMA, UNCOMPLICATED SNOMED Code(s): 389215811 Comment: - Continue albuterol and singulair (5) Full code status Current Visit: Yes Status: Acute Priority: High Code(s): Z78.9 - OTHER SPECIFIED HEALTH STATUS SNOMED Code(s): 464454684 (6) DVT prophylaxis Current Visit: Yes Status: Acute Priority: High Code(s): VSB0108 - SNOMED Code(s): 164292717 Comment: - Eliquis Status and Disposition: Inpatient for acute management. Anticipate discharge home when medically stable.
[2018-03-17] MEDS: Montelukast Sodium TAB* 10 MG PO SCH (17:48)
[2018-03-18] MEDS: Omeprazole CAP* 20 MG PO SCH (05:06)
[2018-03-18] MEDS: Docusate CAP* 100 MG PO SCH ×2 (09:36→20:05)
[2018-03-18] MEDS: Fluticasone NASAL SPRAY 50MCG* 16 gm SPRAY BTL BOTH NARES SCH (09:38)
[2018-03-18] MEDS: Apixaban* 5 MG TAB PO SCH ×2 (09:47→20:05)
--- NOTE | 2018-03-18 12:57 | PN ---
Subjective Date of Service: 03/18/18 Interval History: Ms. Moore continues to report pain with deep inspiration. She c/o nasal congestion which has interfered with sleep. She was on 3L NC this morning, now down to 2L, nursing attempting to titrate. Family History: Unchanged from Admission Social History: Unchanged from Admission Past Medical History: Unchanged from Admission Objective Active Medications: Acetaminophen (Tylenol Tab*) 650 mg PO Q6H PRN Albuterol (Ventolin Hfa Inhaler*) 1 puff INH Q6H PRN Apixaban (Eliquis*) 10 mg PO BID LITO Docusate Sodium (Colace Cap*) 200 mg PO BID LITO Fluticasone Propionate (Flonase Nasal [place] 50mcg*) 2 spray BOTH NARES DAILY LITO Melatonin (Melatonin) 3 mg PO BEDTIME PRN; Protocol Montelukast Sodium (Singulair Tab*) 10 mg PO QPM LITO Omeprazole (Prilosec Cap*) 20 mg PO DAILY@0600 LITO Ondansetron HCl (Zofran Odt Tab*) 4 mg PO Q6H PRN Oxycodone HCl (Roxycodone Tab*) 2.5 mg PO Q4H PRN Tramadol HCl (Ultram*) 50 mg PO Q6H PRN Vital Signs - 8 hr 03/18/18 03/18/18 03/18/18 07:49 08:00 11:40 Temperature 97.8 F 98.0 F Pulse Rate 81 83 Respiratory 20 20 20 Rate Blood Pressure 129/62 123/70 (mmHg) O2 Sat by Pulse 94 94 Oximetry Oxygen Devices in Use Now: Nasal Cannula - 2L NC Appearance: Elderly female sitting in bed in no acute distress. Eyes: PERRLA Ears/Nose/Mouth/Throat: NL Teeth, Lips, Gums, Mucous Membranes Moist Neck: NL Appearance and Movements; NL JVP, Trachea Midline Respiratory: Symmetrical Chest Expansion and Respiratory Effort, Clear to Auscultation Cardiovascular: NL Sounds; No Murmurs; No JVD, RRR, No Edema Abdominal: NL Sounds; No Tenderness; No Distention, No Hepatosplenomegaly Extremities: No Edema Skin: No Rash or Ulcers Neurological: Alert and Oriented x 3 Lines/Tubes/Other Access: Clean, Dry and Intact Peripheral IV Nutrition: Taking PO's Result Diagrams: 03/17/18 11:00 03/17/18 11:00 Assess/Plan/Problems-Billing Assessment: Ms. Moore is a 73yo female with PMH of asthma who presents with chest pain x4 days and SOB for the last few months and was found to have bilateral pulmonary emboli, started on eliquis. - Patient Problems (1) Bilateral pulmonary embolism Current Visit: Yes Status: Acute Priority: High Code(s): I26.99 - OTHER PULMONARY EMBOLISM WITHOUT ACUTE COR PULMONALE SNOMED Code(s): 21152126 Comment: - Chest CTA on 03/15 shows bilateral PE without right heart strain - Echo shows EF of 60-65%, normal LV systolic function, mildly reduced RV systolic function - Still requiring 2L oxygen; continue to titrate - Telemetry - Continue Eliquis (2) Chest pain Current Visit: Yes Status: Acute Priority: High Code(s): R07.9 - CHEST PAIN, UNSPECIFIED SNOMED Code(s): 51487968 Comment: - Negative trops x3 - 2/2 PE - Continue oxy and tramadol PRN (3) Atelectasis Current Visit: Yes Status: Acute Priority: High Comment: - Atelectasis vs pneumonia noted on CTA - No evidence of infection - Continue incentive spirometry (4) Asthma Current Visit: Yes Status: Chronic Priority: Medium Code(s): J45.909 - UNSPECIFIED ASTHMA, UNCOMPLICATED SNOMED Code(s): 881355772 Comment: - Continue albuterol and singulair (5) Full code status Current Visit: Yes Status: Acute Priority: High Code(s): Z78.9 - OTHER SPECIFIED HEALTH STATUS SNOMED Code(s): 558397935 (6) DVT prophylaxis Current Visit: Yes Status: Acute Priority: High Code(s): MDV7736 - SNOMED Code(s): 987792931 Comment: - Eliquis Status and Disposition: Inpatient for acute management. Anticipate discharge home when medically stable.
[2018-03-18] MEDS: Montelukast Sodium TAB* 10 MG PO SCH (17:02)
[2018-03-19] MEDS: Acetaminophen TAB* 325 MG PO PRN (03:15)
[2018-03-19] MEDS: Saline NASAL SPRAY 0.65%* BTL BOTH NARES PRN ×2 (03:21→09:43)
[2018-03-19] MEDS: Omeprazole CAP* 20 MG PO SCH (05:19)
[2018-03-19 05:43] LABS: ABS Basophils 0 10^3/ul (0-0.2); ABS Eosinophils 0.2 10^3/ul (0-0.6); ABS Lymphocytes 1.7 10^3/ul (1.0-4.8); ABS Monocytes 0.8 10^3/ul (0-0.8); ABS Neutrophils 5.4 10^3/ul (1.5-7.7); ABS Nucleated RBC 0 10^3/ul; Eosinophil % 2.1 % (0-6); Hematocrit 37 % (35-47); Hemoglobin 12.2 g/dl (12.0-16.0); Lymphocyte % 21.5 % (25-47); Mean Corpuscular HGB Conc 33 g/dl (31-36); Mean Corpuscular Hemoglobin 28 pg (27-31); Mean Corpuscular Volume 86 fL (80-97); Mean Platelet Volume 8.3 um3 (7.4-10.4); Nucleated Red Blood Cells % 0; Platelet Count 234 10^3/ul (150-450); Red Blood Count 4.29 10^6/ul (4.00-5.40); Red Cell Distribution Width 14 % (10.5-15); White Blood Count 8.1 10^3/ul (3.5-10.8)
[2018-03-19 06:10] LABS: EGFR Non-African American 87.5 (>60)
[2018-03-19] MEDS: Docusate CAP* 100 MG PO SCH (09:28)
[2018-03-19] MEDS: Apixaban* 5 MG TAB PO SCH (09:28)
[2018-03-19] MEDS: Fluticasone NASAL SPRAY 50MCG* 16 gm SPRAY BTL BOTH NARES SCH (09:28)
[2018-03-19 12:41] VITALS: BP 143/87
--- NOTE | 2018-03-20 04:02 | DS ---
CC: Bisi Greenfield MD * DISCHARGE SUMMARY: DATE OF ADMISSION: 03/15/18 DATE OF DISCHARGE: 03/19/18 PRIMARY CARE PROVIDER: Bisi Greenfield MD. PRIMARY DIAGNOSES: 1. Bilateral pulmonary embolisms. 2. Deep vein thrombosis. SECONDARY DIAGNOSES: Include: 1. Asthma. 2. Bilateral lobe atelectasis. MEDICATIONS ON DISCHARGE: Include: 1. Albuterol HFA 1 puff every 6 hours as needed. 2. Montelukast 10 mg in the evening. 3. Fluticasone 2 sprays both nares daily. 4. Senna 8.6 mg at bedtime. 5. New medication, Docusate 200 mg twice daily. 6. New medication, apixaban 10 mg twice daily for 4 additional days and then 5 mg twice daily indefinitely. PERTINENT IMAGING STUDIES: CTA of the chest, impression: Bilateral pulmonary emboli without right heart strain. Bilateral lower lobe pneumonia versus atelectasis. Lower extremity venous Doppler study, impression: Study is positive for nonocclusive thrombus in the left posterior tibial vein. No thrombus identified above the left knee. No DVT in the right lower extremity. Transthoracic echocardiogram, impression: Global left ventricular wall motion and contractility are within normal limits. There is normal LVEF 60% to 65%. Right ventricular global systolic function is mildly reduced. There is no evidence for , trace MR, mild to moderate TR and evidence for moderate pulmonary hypertension. No significant pericardial effusion. PERTINENT LABORATORY DATA: White blood cell count on presentation 11.1, decreased to 8.1 on discharge. Troponin I 0.01 on 3 consecutive checks. BNP is 29. CRP was 82. HISTORY OF PRESENT ILLNESS AND HOSPITAL COURSE: This is a 73-year-old female with past medical history as outlined in the history of present illness on the day of admission largely including asthma, is largely sedentary at home; however , does ambulate, presented to the hospital with shortness of breath and nausea and bilateral pulmonary embolisms, started on apixaban, she received 3 days, 10 mg twice daily. She required 4 L of oxygen, was titrated down to 0 L, room air. On the day of discharge, she was able to ambulate around the unit twice, maintained her O2 saturation at 94%. She felt that her shortness of breath had improved. She had no pleurisy on the day of discharge. The CAT scan was concerning for atelectasis versus pneumonia. However, the patient only received 1 dose of antibiotics in the emergency room 4 days prior to presentation, which was 1 dose of ceftriaxone on 03/15/18 with resolution of her leukocytosis. She had no fevers. Her oxygen saturation improved. She had no cough arguing against pneumonia. There was no identified precipitating factor for her pulmonary embolism, although the patient did note several months ago, she fell while feeding the birds, although does not note that she struck her legs. At this point, I believe, she had unprovoked pulmonary embolism that was bilateral, significant in burden, lower extremity clot, although was not proximal DVT. There were no complications during this patient's hospital stay. Extensive counseling was underwent with the patient regarding the nature of her illness as well as cautioned on new blood thinner. At followup, please; 1. Ensure the patient is compliant with new medications. 2. No other specific labs or vitals that need followup. Reasons to return to the hospital including, but not limited to recurrent or worsening symptoms including chest pain or shortness of breath, nausea, vomiting , lightheadedness, loss of consciousness or near loss consciousness, headache, blurry vision, bleeding from any source including dark, black stool were discussed with the patient at length and she acknowledged understanding. TIME SPENT: Greater than 60 minutes were spent on the discharge of this patient , greater than half was spent [id number] with the patient. [id number]/[facility] #: [id number] MTDD
== END 2018-03-19 13:15 | disposition home or self-care (01) | DRG 176 ==
LOC: ED 14:46 → MEDTELE 19:16
PROVIDERS: ADMIT Hospitalist; ATTEND Internal Medicine
DX: I26.99 Other pulmonary embolism without acute cor pulmonale (principal); J90 Pleural effusion, not elsewhere classified; J98.11 Atelectasis; I82.442 Acute embolism and thrombosis of left tibial vein; K21.9 Gastro-esophageal reflux disease without esophagitis; K58.9 Irritable bowel syndrome, unspecified; E66.9 Obesity, unspecified; F32.9 Major depressive disorder, single episode, unspecified; M19.90 Unspecified osteoarthritis, unspecified site; M81.0 Age-related osteoporosis without current pathological fracture; I08.1 Rheumatic disorders of both mitral and tricuspid valves; I27.20 Pulmonary hypertension, unspecified; J45.909 Unspecified asthma, uncomplicated; Z98.42 Cataract extraction status, left eye; Z98.41 Cataract extraction status, right eye; Z68.32 Body mass index [BMI] 32.0-32.9, adult; Z82.49 Family history of ischemic heart disease and other diseases of the circulatory system; Z90.710 Acquired absence of both cervix and uterus; Z90.49 Acquired absence of other specified parts of digestive tract; Z88.5 Allergy status to narcotic agent; Z80.6 Family history of leukemia; Z80.41 Family history of malignant neoplasm of ovary; Z23 Encounter for immunization; Z79.01 Long term (current) use of anticoagulants
CPT/HCPCS: 36415; 36600; 71045; 71275; 80048; 80053; 82550; 82553; 82803; 83605; 83735; 83880; 84443; 84484; 85025; 85379; 85610; 85730; 86140; 87040; 90686; 93005; 93306; 93970; 99283; A9270-GY; G8978-GP-CH; G8978-GP-CJ; G8979-GP-CH; G8979-GP-CI; G8980-GP-CH; J0696; J1885; J2270; J2405; Q9967